=== PATIENT | male | born 1955 | race Caucasian/White ===

== ENCOUNTER 2016-10-01 08:19 | Observation (INO) | payer BC ==
[2016-10-01] MEDS ORDERED: SODIUM CHLORIDE 0.9% 1,000 ML IV STA (08:37)
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
[2016-10-01 09:25] LABS: Basophils % (A) 1 %; CH 31.5; CHCM 32.9; Eosinophils % (A) 1 %; HCT 44.8 % (39.0-53.0); HDW 2.26; HGB 14.7 gm/dL (13.0-17.5); Luc # (Auto) 0.04; Luc % (Auto) 1; Lymphocytes # (A) 0.9 k/uL (1.0-4.8); Lymphocytes % (A) 16 %; MCH 31.6 pg (25.0-35.0); MCHC 32.9 g/dL (31.0-37.0); MCV 96.1 fL (80.0-100.0); Mean Platelet Volume 7.9; Monocytes # (A) 0.3 k/uL (0-1.0); Monocytes % (A) 6 %; Neutrophils # (A) 4.2 k/uL (1.3-7.7); Neutrophils % (A) 77 %; RBC 4.66 m/uL (4.30-5.90); RDW 13.9 % (11.5-15.5); WBC 5.4 k/uL (3.8-10.6); WBC (Perox) 5.81
[2016-10-01 09:26] LABS: Glucose,Whole Blood 94 mg/dL (75-99)
--- NOTE | 2016-10-01 09:33 | CT ---
EXAMINATION TYPE: CT brain wo con DATE OF EXAM: 10/01/2016 HISTORY: Possible seizure CT DLP: 1098.3 mGycm. Automated Exposure Control for Dose Reduction was Utilized. TECHNIQUE: CT scan of the head is performed without contrast. COMPARISON: None. FINDINGS: There is no acute intracranial hemorrhage or midline shift identified. There is diffuse v entricular and sulcal prominence consistent with diffuse age-related cerebral atrophy. The globes are intact and the visualized sinuses are predominantly clear. Mild mucosal thickening anterior ethmoid sinuses is present. There is vascular calcification of distal internal carotid arteries and vertebral arteries incidentally noted bilaterally. IMPRESSION: No acute intracranial hemorrhage or midline shift. There is mild to minimal diffuse age -related cerebral atrophy .
[2016-10-01 09:36] LABS: Appearance,Urine Clear (Clear); Bilirubin,Urine Negative (Negative); Glucose,Urine (UA) Negative (Negative); Ketones,Urine Negative (Negative); Leukocyte Esterase,Urine Negative (Negative); Nitrite,Urine Negative (Negative); Particle Count 4443; Protein,Urine 1+ (Negative); Prothrombin Time 10.2 sec (9.0-12.0); RBC,Urine 5 /hpf (0-5); Specific Gravity,Urine 1.015 (1.001-1.035); Sperm,Urine Many /hpf; UA Billing (MACRO vs. MICRO) MICRO; Urobilinogen,Urine <2.0 mg/dL (<2.0); WBC,Urine 5 /hpf (0-5)
[2016-10-01 10:21] LABS: ALT 21 U/L (21-72); AST 15 U/L (17-59); Acetaminophen <10.0 ug/mL; Alcohol <10 mg/dL; Alkaline Phosphatase 47 U/L (38-126); Anion Gap 4 mmol/L; Blood Urea Nitrogen 12 mg/dL (9-20); Calcium 8.6 mg/dL (8.4-10.2); Carbon Dioxide 26 mmol/L (22-30); Chloride 106 mmol/L (98-107); Glucose 89 mg/dL (74-99); Magnesium 1.8 mg/dL (1.6-2.3); Non-African American GFR(MDRD) >60 (>60 ml/min/1.73 sqM); Potassium 4.3 mmol/L (3.5-5.1); Salicylate <1.0 mg/dL; Sodium 136 mmol/L (137-145); Total Bilirubin 0.6 mg/dL (0.2-1.3); Total Protein 5.7 g/dL (6.3-8.2)
[2016-10-01 10:41] LABS: Troponin I 0.012 ng/mL (0.000-0.034)
[2016-10-01] MEDS ORDERED: ONDANSETRON 4 MG/2 ML VIAL IVP PRN (11:56)
[2016-10-01] MEDS ORDERED: MORPHINE SULFATE 4 MG/ML SYRINGE IV PRN (11:56)
[2016-10-01] MEDS ORDERED: NALOXONE 0.4 MG/ML 1 ML VIAL IV PRN (11:56)
[2016-10-01] MEDS ORDERED: NICOTINE 21MG/24HR PATCH TRANSDERM STA (11:58)
[2016-10-01] MEDS ORDERED: SODIUM CHLORIDE 0.9% 1,000 ML IV SCH (12:00)
[2016-10-01] MEDS: ACETAMINOPHEN TAB 325 MG TAB PO PRN (14:14)
--- NOTE | 2016-10-01 15:38 | US ---
EXAMINATION TYPE: US carotid duplex BILAT DATE OF EXAM: 10/01/2016 COMPARISON: NONE CLINICAL HISTORY: Seizure this am.. EXAM MEASUREMENTS: RIGHT: Peak Systolic Velocity (PSV) cm/sec ----- Right CCA: 74.0 ----- Right ICA: 161.0 ----- Right ECA: 103.1 ICA/CCA ratio: 2.2 RIGHT: End Diastole cm/sec ----- Right CCA: 28.5 ----- Right ICA: 43.0 ----- Right ECA: 46.1 LEFT: Peak Systolic Velocity (PSV) cm/sec ----- Left CCA: 107.7 ----- Left ICA: 106.1 ----- Left ECA: 109.3 ICA/CCA ratio: 1.0 LEFT: End Diastole cm/sec ----- Left CCA: 26.8 ----- Left ICA: 49.5 ----- Left ECA: 20.4 VERTEBRALS (direction of flow): Right Vertebral: Antegrade Left Vertebral: Antegrade calcified and soft plaque seen bilaterally. Slightly elevated velocities in right ICA, distally. Vess el is tortuous at this level. IMPRESSION: 1. Moderate stenosis right internal carotid artery estimated between 50 and 69%. 2. No significant flow-limiting stenosis left internal carotid artery. Criteria for Assigning % of Stenosis / Diameter reduction (Estimation based on the indirect measurements of the internal carotid artery velocities (ICA PSV). 1. Normal (no stenosis)=ICA PSV < 125 cm/s: ratio < 2.0: ICA EDV<40 cm/s. 2. Less than 50% stenosis=ICA PSV < 125 cm/s: ratio < 2.0: ICA EDV<40 cm/s. 3. 50 to 69% stenosis=ICA PSV of 125 to 230 cm/s: ration 2.0 ? 4.0: ICA EDV 40-100 cm/s. 4. Greater than 70% stenosis to near occlusion= ICA PSV > 230 cm/s: ratio > 4.0: ICA EDV > 100 cm/s. 5. Near occlusion= ICA PSV velocities may be low or undetectable: variable ratio and ICA EDV. 6. Total occlusion=unable to detect flow.
[2016-10-01] MEDS: IBUPROFEN 400 MG TAB PO PRN (17:51)
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
[2016-10-01] MEDS ORDERED: NICOTINE POLACRILEX 2 MG GUM BUCCAL PRN (20:19)
[2016-10-01] MEDS: ENOXAPARIN 40 MG/0.4 ML SYRINGE SQ SCH (22:28)
[2016-10-01] MEDS: NICOTINE 21MG/24HR PATCH TRANSDERM SCH ×2 (22:28→22:31)
[2016-10-01] MEDS: TIOTROPIUM 18 MCG/PUFF INHALER INHALATION SCH (23:07)
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
--- NOTE | 2016-10-02 07:30 | XR ---
EXAMINATION TYPE: XR chest 2V DATE OF EXAM: 10/01/2016 HISTORY: copd. REFERENCE: Previous study dated 06/06/2011. FINDINGS: The right lung is overinflated. There are postsurgical changes in the left lung with volume loss. 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 I do not see evidence of pneumonia or edema. Heart size is normal. IMPRESSION: 1. COPD. 2. POSTSURGICAL CHANGE.
[2016-10-02] MEDS: TIOTROPIUM 18 MCG/PUFF INHALER INHALATION SCH (07:39)
[2016-10-02] MEDS: ACETAMINOPHEN TAB 325 MG TAB PO PRN ×2 (08:18→23:51)
[2016-10-02] MEDS: ENOXAPARIN 40 MG/0.4 ML SYRINGE SQ SCH (08:18)
[2016-10-02] MEDS: NICOTINE 21MG/24HR PATCH TRANSDERM SCH (08:18)
--- NOTE | 2016-10-02 08:49 | ECHOF ---
Referral Reason:seizure MEASUREMENTS -------- HEIGHT: 175.3 cm WEIGHT: 63.5 kg BP: RVIDd: 1.9 cm (< 3.3) IVSd: 1.2 cm (0.6 - 1.1) LVIDd: 3.3 cm (3.9 - 5.3) LVPWd: 1.1 cm (0.6 - 1.1) IVSs: 1.6 cm LVIDs: 2.0 cm LVPWs: 1.5 cm LAESV Index (A-L): 11.62 ml/m Ao Diam: 3.9 cm (2.0 - 3.7) AV Cusp: 1.7 cm (1.5 - 2.6) LA Diam: 3.2 cm (2.7 - 3.8) MV EXCURSION: 20.954 mm (> 18.000) MV EF SLOPE: 105 mm/s (70 - 150) EPSS: 0.8 cm MV E Tristan: 0.84 m/s MV DecT: 275 ms MV A Tristan: 0.84 m/s MV E/A Ratio: 1.00 RAP: 5.00 mmHg RVSP: 8.33 mmHg FINDINGS -------- Sinus rhythm. This was a technically adequate study. There is mild concentric left ventricular hypertrophy. Overall left ventricular systolic function is normal with, an EF between 60 - 65 %. The right ventricle is normal in size and function. Normal LA size by volume 22+/-6 ml/m2. The right atrium is normal in size. Aortic valve is trileaflet and is mildly thickened. There is no evidence of aortic regurgitation. There is no evidence of aortic stenosis. The mitral valve leaflets are mildly thickened. Mild mitral annular calcification present. There is trace to mild mitral regurgitation. Trace tricuspid regurgitation present. There is no evidence of pulmonary hypertension. The right ventricular systolic pressure, as measured by Doppler, is 8.33mmHg. The pulmonic valve was not well visualized. The aortic root size is normal. Normal inferior vena cava with normal inspiratory collapse consistent with estimated right atrial pressure of 5 mmHg. There is a small pericardial effusion is located near the right ventricle. CONCLUSIONS -------- 1. Sinus rhythm. 2. There is no evidence of pulmonary hypertension. 3. The right ventricular systolic pressure, as measured by Doppler, is 8.33mmHg. 4. The pulmonic valve was not well visualized. 5. The aortic root size is normal. 6. There is a small pericardial effusion is located near the right ventricle. 7. There is mild concentric left ventricular hypertrophy. 8. Overall left ventricular systolic function is normal with, an EF between 60 - 65 %. 9. Normal LA size by volume 22+/-6 ml/m2. 10. Aortic valve is trileaflet and is mildly thickened. 11. The mitral valve leaflets are mildly thickened. 12. Mild mitral annular calcification present. 13. There is trace to mild mitral regurgitation. 14. Trace tricuspid regurgitation present. REED WORKER: Jaden Andrade RDCS
--- NOTE | 2016-10-02 15:14 | MR ---
EXAMINATION TYPE: MR brain wo/w con DATE OF EXAM: 10/02/2016 COMPARISON: NONE HISTORY: History of lung cancer, new onset seizures, syncope, dizziness, headaches CONTRAST: Performed utilizing 13 mL intravenous MultiHance gadolinium contrast. TECHNIQUE: Multiplanar, multiecho imaging on a 3.0 Cindi magnet is performed through the brain. Stud y is performed within 24 hours of arrival to the hospital. The craniovertebral junction is normal. The pituitary is normal. Diffusion-weighted imaging is performed. No abnormal hyperintensity is present to suggest an acute i ntracranial infarct or acute ischemic change. There are a few small scattered punctate areas of hyperintensity within the periventricular white mat ter. This is most likely the basis of chronic white matter ischemic changes. No abnormal enhancement is evident. Ventricles and sulci are appropriate for the patient age. IMPRESSIONS: 1. Mild periventricular white matter T ischemic type changes. 2. Suspicious changes to suggest metastatic disease.
[2016-10-02] MEDS: IBUPROFEN 400 MG TAB PO PRN (19:41)
--- NOTE | 2016-10-02 21:34 | PN ---
DATE OF SERVICE: 10/02/2016 PRESENTING COMPLAINT: Seizure-like activity. INTERVAL HISTORY: This is a patient who was admitted after experiencing seizure activity that was witnessed, postictal state. Today patient is awake and alert, able to answer questions. No complaints. Tolerating his meals. Ambulatory in the room. Review of systems done for constitutional, cardiovascular, GI, pulmonary, with relevant findings as above. CURRENT MEDICATIONS: 1. Lovenox 40 mg subcutaneously daily. 2. Nicotine patch 21 mg daily. PHYSICAL EXAMINATION: VITAL SIGNS: Temperature 97.2, pulse 69, respiratory rate 14, blood pressure 137/90, oxygen saturation 98% on room air. GENERAL APPEARANCE: Patient is lying in bed, comfortable-appearing. No pain or discomfort noted. EYES: Pupils equal. Conjunctivae normal. NECK: JVD not raised. Mass not palpable. RESPIRATORY: Lungs clear bilaterally. CARDIOVASCULAR: First and second sounds noted. No edema. ABDOMEN: Soft, nontender. Liver and spleen not palpable. PSYCHIATRY: Alert and oriented x3. Mood and affect are normal. INVESTIGATIONS: MRI pending. EEG pending. ASSESSMENT: 1. Acute episode of confusion, witnessed tonic-clonic seizure activity with postictal state. Some headaches in the last month. Need to rule out metastatic disease from cancer. Primary generalized seizure is still in the differential. 2. Chronic obstructive pulmonary disease by clinical exam in a smoker. 3. Chronic nicotine dependence. Patient is a smoker. 4. Chronic neck pain from prior injury. PLAN: MRI of the brain and EEG are pending. Neuro checks continue. Will follow with Neurology. Patient was seen and examined by nurse practitioner, April Hightower, and all elements of the case were discussed with attending, Dr. Cornejo.
--- NOTE | 2016-10-02 22:11 | P.PN ---
Subjective This patient is a 60-year-old male who was admitted to Hospital with new onset seizures yesterday. Patient returned home from working at midnight shift and had a witnessed seizure that was noted by his . Lasted several minutes. He did to be postictal. Patient subtotally admitted to hospital yesterday. Today he underwent an MRI of the brain with and without gadolinium. He does have a history of cancer in the past. MRI of the brain reveals only mild periventricular white matter ischemic changes. There were no enhancing lesions seen. Patient also underwent routine EEG today which was reviewed and is slow but with no evidence of epileptiform discharges. We will continue close neurological follow-up for this patient. He does not appear to have any signs or symptoms of delirium tremens as he does have a history of alcohol use. We have discussed the results of the MRI and EEG today with the patient and his and son at bedside. All of their questions were answered. The patient was informed of the [place] driving law which states he cannot drive in the [facility] for appeared of 6 months following his seizure and/or syncopal episode. Patient is requesting possibility of FMLA as he apparently has to drive 38 miles to work. He is planning to retire and 40 days. He will discuss these matters with the attending physician Dr. Cornejo tomorrow. We will continue close neurological follow-up for this patient during this admission. We'll await further recommendations from social work and discharge planning. His overall prognosis at this time remains guarded. Objective - Vital Signs Vital signs: Vital Signs Temp 97.1 F L 10/02/16 15:00 Pulse 70 10/02/16 16:00 Resp 16 10/02/16 16:00 BP 135/71 10/02/16 15:00 Pulse Ox 98 10/02/16 15:00 Intake & Output 10/02/16 10/02/16 10/03/16 06:59 18:59 06:59 Intake Total 200 Balance 200 Intake: Oral 200 Other: Voiding Method Toilet # Voids 0 3 - Exam Physical examination: PHYSICAL EXAMINATION: Patient is resting comfortably in bed. VITAL SIGNS: Blood pressure is [135/71]. Heart rate is [70]. Respiration is [16] . Temperature is [97.1]. HEENT: Head is atraumatic, neck is supple, there were no carotid bruits. CHEST: Lungs are clear to auscultation and percussion. CARDIAC: S1, S2 normal rate and rhythm. There is no murmur. ABDOMEN: Soft and nontender. Bowel sounds are present. EXTREMITIES: There is no pedal edema. Peripheral pulses are present. Neurological examination: Patient's neurological examination is unchanged from yesterday. - Labs CBC & Chem 7: 10/01/16 09:00 10/01/16 09:47 Assessment and Plan (1) History of non-Hodgkin's lymphoma Status: Acute Code(s): Z85.72 - PERSONAL HISTORY OF NON-HODGKIN LYMPHOMAS (2) History of alcohol use Status: Acute Code(s): Z87.898 - PERSONAL HISTORY OF OTHER SPECIFIED CONDITIONS (3) New onset seizure Status: Acute Code(s): R56.9 - UNSPECIFIED CONVULSIONS Plan: This patient is a 60-year-old male who was admitted to hospital with possible new onset seizure. Patient was at home and had a witnessed seizure noticed by his . He was brought into the emergency room suddenly admitted to Hospital. Patient has a history of remote lung cancer. He underwent a MRI of the brain today with without gadolinium. This MRI came back negative for any evidence of enhancing mass lesions and/or tumor. There was mild periventricular white matter ischemic changes noted. He underwent a routine EEG today which is reviewed and is only mildly slow with no evidence of any epileptiform discharges. We reviewed the results of the MRI and EEG today with the patient and his . He is advised of the [place] driving law which states he cannot drive and [facility] for appeared of 6 months following his last seizure and/or syncopal episode. 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 He may need to apply for [place] leave. We have discussed this with the and his son today at bedside. All of their questions were answered. We will continue close neurological follow-up with the patient. At this time he does not require anticonvulsant medication. If he were to have a another seizure however he will be placed on long-term anticonvulsant therapy. His overall prognosis at this time remains guarded.
[2016-10-03 07:37] VITALS: BP 158/84; PULSE 59; RESP 20; TEMP 96.2
[2016-10-03] MEDS: NICOTINE 21MG/24HR PATCH TRANSDERM SCH (08:18)
[2016-10-03] MEDS: ENOXAPARIN 40 MG/0.4 ML SYRINGE SQ SCH ×2 (08:18→08:22)
[2016-10-03] MEDS: TIOTROPIUM 18 MCG/PUFF INHALER INHALATION SCH (08:22)
--- NOTE | 2016-10-03 08:57 | EEG ---
DATE OF SERVICE: 10/02/[address] Cornejo. CONSULTING INTERPRETING PHYSICIAN: Dr. Paty Landeros. INDICATIONS FOR EXAMINATION: This patient is a 60-year-old male being evaluated for new onset seizures. Patient with 10 minute episode of tonic-clonic seizure activity followed by postictal confusion. Patient has history of heavy alcohol use. AGE: 60Y EEG FINDINGS: A routine 21-channel, awake digital EEG recording was accomplished utilizing the 10 - 20 international system with bipolar and referential montages. The background activity in the most alert resting state consists of a low to medium amplitude, fairly well-developed and well sustained 7 Hz activity over the posterior head regions. This posterior rhythm attenuates to eye opening. There is a small amount of low amplitude 18 to 20 Hz beta activity seen maximally over the anterior head regions. Muscle and movement artifact was observed on a few occasions during the tracing. Hyperventilation was not performed. Photic stimulation at flash frequencies of 2 to 30 Hz produced a good symmetrical occipital driving response. No epileptiform discharges were seen. IMPRESSION: This EEG is within normal limits for the patient's age. The EEG failed to reveal any focal, lateralized or epileptiform abnormalities. Clinical correlation is recommended.
[2016-10-03 08:58] LABS: Basophils % (A) 1 %; CH 31.8; CHCM 33.1; Eosinophils % (A) 1 %; HCT 46.5 % (39.0-53.0); HDW 2.24; HGB 14.8 gm/dL (13.0-17.5); Luc # (Auto) 0.07; Luc % (Auto) 2; Lymphocytes # (A) 1.7 k/uL (1.0-4.8); Lymphocytes % (A) 37 %; MCH 30.8 pg (25.0-35.0); MCHC 31.9 g/dL (31.0-37.0); MCV 96.6 fL (80.0-100.0); Mean Platelet Volume 7.6; Monocytes # (A) 0.3 k/uL (0-1.0); Monocytes % (A) 7 %; Neutrophils # (A) 2.5 k/uL (1.3-7.7); Neutrophils % (A) 54 %; RBC 4.81 m/uL (4.30-5.90); RDW 13.7 % (11.5-15.5); WBC 4.6 k/uL (3.8-10.6); WBC (Perox) 4.54
[2016-10-03 09:15] LABS: Anion Gap 8 mmol/L; Blood Urea Nitrogen 12 mg/dL (9-20); Calcium 9.6 mg/dL (8.4-10.2); Carbon Dioxide 26 mmol/L (22-30); Chloride 105 mmol/L (98-107); Glucose 140 mg/dL (74-99); Non-African American GFR(MDRD) >60 (>60 ml/min/1.73 sqM); Potassium 4.4 mmol/L (3.5-5.1); Sodium 139 mmol/L (137-145)
--- NOTE | 2016-10-03 15:14 | PN ---
DATE OF SERVICE: 10/02/2016 ATTENDING NOTE: This patient was seen and examined by me on 10/02/16. I reviewed the note of my nurse practitioner, Ms. Hightower. Discussed. Additional findings below. Patient was admitted with seizure activity. Pending results of MRI. No further seizure activity. On examination, lungs have decreased breath sounds. CARDIOVASCULAR: First and second sounds. PSYCH: Alert and oriented x3. ASSESSMENT: Seizure activity. Rule out metastatic disease. Care was discussed with the patient and family. EEG still pending. Will follow.
--- NOTE | 2016-10-04 09:40 | DS ---
DATE OF ADMISSION: 10/01/2016 DATE OF DISCHARGE: 10/03/2016 FINAL DIAGNOSES: 1. New onset seizures tonic-clonic type. 2. Chronic obstructive pulmonary disease in a smoker. 3. Chronic nicotine dependence. Patient is a smoker. 4. Chronic neck pain from prior injury, probably cervical osteoarthritis. Consultation with Dr. Gianfranco Landeros from neurology. HOSPITAL COURSE: This patient presented with acute episode of seizure that was witnessed in a postictal state. EEG came back negative. MRI did not really rule out a metastatic disease. Carotid Doppler showed a 50 to 69% stenosis on the right side. A 2-D echocardiogram was unremarkable. Patient was seen by Gianfranco Landeros from neurology, and okay to be discharged. It may be noted that patient did have a history of lung cancer treated several years ago. I did discuss with the patient about the patient getting outpatient follow up with Dr. Shepard for further work. Patient also advised against driving at this point and also seizure precautions. Patient not to go back to work until he has followed up with Dr. Landeros from neurology. Care was discussed in detail today with the patient's and son. On examination, lungs have decreased breath sounds. PSYCH: Alert and oriented x3. DISCHARGE MEDICATIONS: 1. Millwood 5 1 tablets t.i.d. p.r.n. 2. Atrovent 2 puffs q.i.d. 3. Nicotine 20 mg patch. 4. Nicorette 2 mg q.4 p.r.n. Follow up with Dr. Shepard in one week. Follow up with Dr. Gianfranco Landeros in 10 days, Dr. Hatch in one week. Patient not to return to work until follow up with Dr. Gianfranco Landeros. No driving until further notice. Discharge planning more than 35 minutes.
== END 2016-10-03 13:00 | disposition home or self-care (01) ==
LOC: EC 08:19 → 4MS4W 11:52
PROVIDERS: ADMIT Hospitalist; ATTEND Hospitalist
DX: R56.9 Unspecified convulsions (principal); F17.200 Nicotine dependence, unspecified, uncomplicated; J44.9 Chronic obstructive pulmonary disease, unspecified; G89.29 Other chronic pain; M54.2 Cervicalgia; G43.909 Migraine, unspecified, not intractable, without status migrainosus; Z79.891 Long term (current) use of opiate analgesic; Z92.21 Personal history of antineoplastic chemotherapy; Z85.118 Personal history of other malignant neoplasm of bronchus and lung; Z82.49 Family history of ischemic heart disease and other diseases of the circulatory system; Z85.72 Personal history of non-Hodgkin lymphomas; Z87.828 Personal history of other (healed) physical injury and trauma
CPT/HCPCS: 99285; 96361 ×5; 96372; 96360; 36415; 94640 ×2; 95816; 93005; 93306; 80053; 80048; 82550; 82553; 83735; 84484; 85025 ×2; 85610; 85730; 81001; 80306; 83520 ×2; 80320; 71020; 93880; 70450; 70553; G0378 ×3; S4990; J1650; A9577

== ENCOUNTER 2019-02-03 12:07 | Day surgery (SDC) | payer BC, MEDICAID ==
[2019-02-01 14:55] VITALS: BMI 18.7
[~2019-02-03 12:07] MED LIST: LACTATED RINGERS 1,000 ML IV SCH; LIDOCAINE 1% 20 ML VIAL (10MG/ML) FOR IV START INTRADERMA PRN
[2019-02-03 12:42] VITALS: TEMP 98.6
[2019-02-03] MEDS ORDERED: LIDOCAINE 1% INJ 10MG/ML (20 ML MDV) ONE (12:56)
[2019-02-03] MEDS ORDERED: PROPOFOL 10 MG/ML 20 ML VIAL IV ONE (12:56)
--- NOTE | 2019-02-03 13:23 | P.OP ---
Date of Procedure: 02/03/19 Preoperative Diagnosis: Screening Postoperative Diagnosis: Splenic flexure colon polyp, descending colon polyp, sigmoid colon Procedure(s) Performed: Colonoscopy with hot snare polypectomy Surgeon: Patt Delvalle Pathology: other (Sigmoid colon polyp, splenic flexure polyp, descending colon polyp) Condition: stable Disposition: same day Indications for Procedure: 63-year-old male presented for screening colonoscopy. Risks, benefits and alternatives were provided to the patient. The patient did provide consent prior to attending the endoscopy suite. Operative Findings: Polyps as described in the procedure Description of Procedure: The patient was brought into the endoscopy suite and placed in left lateral decubitus position. Adequate sedation was achieved using conscious sedation. A digital rectal exam was performed and mild internal hemorrhage were palpated. An endoscope was then placed in the rectum and advanced to the cecum as identified by landmarks including the appendiceal orifice and the ileocecal valve. The prep was good. The colonoscope was then slowly withdrawn, examining for any mucosal abnormality's. The cecum, ascending, transverse, descending and sigmoid colon were visualized adequately. Multiple polyps were found throughout the colon. Polyps were noted at the splenic flexure, descending colon and sigmoid colon. All polyps were removed with hot snare polypectomy. Hemostasis was noted to be maintained. Retroflexion was performed in the rectum and mild internal hemorrhoids were visible. Excess air was removed, the colonoscope withdrawn and the procedure terminated. The patient was then transferred to the recovery unit in stable condition. Repeat colonoscopy should be performed in 5 years.
[2019-02-03 13:39] VITALS: BP 144/78; PULSE 67; RESP 18
== END 2019-02-03 13:52 | disposition home or self-care (01) ==
LOC: ORWHC2ENDO 12:07
PROVIDERS: ATTEND Surgery
DX: D12.4 Benign neoplasm of descending colon (principal); D12.3 Benign neoplasm of transverse colon; D12.5 Benign neoplasm of sigmoid colon; K64.8 Other hemorrhoids; E78.5 Hyperlipidemia, unspecified; Z86.718 Personal history of other venous thrombosis and embolism; Z85.118 Personal history of other malignant neoplasm of bronchus and lung; Z97.2 Presence of dental prosthetic device (complete) (partial); Z79.899 Other long term (current) drug therapy; F17.200 Nicotine dependence, unspecified, uncomplicated
CPT/HCPCS: 88305; 45385; J2001; J2704

== ENCOUNTER 2020-02-09 13:00 | Emergency (ER) | payer MEDICARE, OTHER ==
[2020-02-09 13:10] VITALS: TEMP 97
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
[2020-02-09 13:42] LABS: Basophils % (A) 0 %; Eosinophils # (A) 0.1 k/uL (0-0.7); Eosinophils % (A) 1 %; HCT 46.5 % (39.0-53.0); HGB 15.1 gm/dL (13.0-17.5); Lymphocytes # (A) 1.1 k/uL (1.0-4.8); Lymphocytes % (A) 14 %; MCH 31.7 pg (25.0-35.0); MCHC 32.5 g/dL (31.0-37.0); MCV 97.6 fL (80.0-100.0); Mean Platelet Volume 7.5; Monocytes # (A) 0.4 k/uL (0-1.0); Monocytes % (A) 5 %; Neutrophils # (A) 6.3 k/uL (1.3-7.7); Neutrophils % (A) 79 %; Platelet Count 236 k/uL (150-450); RBC 4.76 m/uL (4.30-5.90); RDW 13.8 % (11.5-15.5)
[2020-02-09 13:54] LABS: ALT 19 U/L (4-49); AST 28 U/L (17-59); African American GFR (CKD) >90 (>60 ml/min/1.73 sqM); Alcohol <10 mg/dL; Alkaline Phosphatase 59 U/L (38-126); Anion Gap 7 mmol/L; Blood Urea Nitrogen 13 mg/dL (9-20); Calcium 9.3 mg/dL (8.4-10.2); Carbon Dioxide 23 mmol/L (22-30); Chloride 104 mmol/L (98-107); Glucose 127 mg/dL (74-99); Non-African American GFR(CKD) >90 (>60 ml/min/1.73 sqM); Potassium 4.4 mmol/L (3.5-5.1); Sodium 134 mmol/L (137-145); Total Bilirubin 0.6 mg/dL (0.2-1.3); Total Protein 6.6 g/dL (6.3-8.2)
[2020-02-09 14:00] LABS: INR 0.9 (<1.2); Prothrombin Time 9.9 sec (9.0-12.0)
[2020-02-09 14:19] LABS: Partial Thromboplastin Time 21.5 sec (22.0-30.0)
--- NOTE | 2020-02-09 14:19 | CT ---
EXAMINATION TYPE: CT brain wo con DATE OF EXAM: 02/09/2020 HISTORY: Seizure activity CT DLP: 1201.4 mGycm. Automated Exposure Control for Dose Reduction was Utilized. TECHNIQUE: CT scan of the head is performed without contrast. COMPARISON: CT brain October 01, 2016. FINDINGS: There is no acute intracranial hemorrhage or midline shift identified. There is diffuse v entricular and sulcal prominence consistent with diffuse age-related cerebral atrophy greatest over b ilateral frontal and parietal lobes. There is low-attenuation in the periventricular white matter co nsistent with chronic small vessel ischemic change. The globes are intact and the visualized sinuses are clear. Nasal septum deviated to right of midline. IMPRESSION: No acute intracranial hemorrhage or midline shift. There is mild to moderate diffuse ag e-related cerebral atrophy and mild chronic small vessel ischemic change redemonstrated. No signific ant change from prior.
[2020-02-09 14:45] LABS: Creatine Kinase MB 0.8 ng/mL (0.0-2.4)
[2020-02-09 14:48] LABS: Troponin I 0.038 ng/mL (0.000-0.034)
[2020-02-09 15:23] VITALS: BP 144/85; PULSE 80; RESP 17
== END 2020-02-09 15:22 | disposition left against medical advice (07) ==
LOC: EC 13:00
DX: R55 Syncope and collapse (principal); R41.0 Disorientation, unspecified; E78.5 Hyperlipidemia, unspecified; Z79.899 Other long term (current) drug therapy; Z85.118 Personal history of other malignant neoplasm of bronchus and lung; Z90.2 Acquired absence of lung [part of]
CPT/HCPCS: 36415; 93005; 80053; 82550; 82553; 84484; 85025; 85610; 85730; 70450; 99285; G0480; 80320

== ENCOUNTER 2020-02-27 06:21 | Day surgery (SDC) | payer MEDICARE, OTHER ==
[~2020-02-27 06:21] MED LIST changes: +ALPRAZolam 0.25 MG TAB PO PRN; +ALPRAZolam 0.5 MG TAB PO PRN; +ASPIRIN 325 MG TAB PO STA; -LACTATED RINGERS 1,000 ML IV SCH; -LIDOCAINE 1% 20 ML VIAL (10MG/ML) FOR IV START INTRADERMA PRN; +NITROGLYCERIN SL TABS 0.4 MG TAB SUBLINGUAL PRN; +SODIUM CHLORIDE 0.9% 1,000 ML in EMPTY BAG 1 BAG IV ONE
[2020-02-27] MEDS ORDERED: SODIUM CHLORIDE 0.9% 1,000 ML IV ONE (07:03)
[2020-02-27] MEDS ORDERED: LIDOCAINE 1% INJ 10MG/ML (20 ML MDV) SQ ONE ×2 (07:38→07:44)
[2020-02-27] MEDS ORDERED: fentaNYL (PF) 50 MCG/ML 2 ML AMP IVP ONE ×2 (07:38→07:44)
[2020-02-27] MEDS ORDERED: MIDAZOLAM 2 MG/2 ML VIAL IVP ONE (07:38)
[2020-02-27] MEDS ORDERED: HEPARIN SODIUM 1,000 UN/ML (10ML VL) IV ONE ×3 (08:12→08:59)
[2020-02-27] MEDS ORDERED: CLOPIDOGREL 75 MG TAB PO ONE (08:22)
[2020-02-27] MEDS ORDERED: IOPAMIDOL-370 125ML BTL INJ ONE ×2 (08:40)
[2020-02-27] MEDS ORDERED: NITROGLYCERIN 1000MCG/10ML SYRINGE INTRACORON ONE ×2 (08:41→09:13)
[2020-02-27] MEDS ORDERED: IOPAMIDOL-370 100ML BTL INJ ONE (09:30)
[2020-02-27] MEDS ORDERED: RX INFO: IV CONTRAST WAS GIVEN 1 EACH MISC MISCELLANE PRN (09:43)
[2020-02-27] MEDS ORDERED: ATROPINE SULFATE 0.1 MG/ML 10ML SYRINGE IV PRN (09:43)
[2020-02-27] MEDS ORDERED: NITROGLYCERIN SL TABS 0.4 MG TAB SUBLINGUAL PRN (09:43)
[2020-02-27] MEDS ORDERED: ZOLPIDEM 5 MG TAB PO PRN (09:43)
[2020-02-27] MEDS ORDERED: MAG HYDROX/AL HYDROX/SIMETH 30 ML CUP PO PRN (09:43)
--- NOTE | 2020-02-27 10:35 | CC ---
CARDIAC CATHETERIZATION REPORT INDICATION: Non ST-segment elevation OH. This is a 64-year-old gentleman who had an episode of syncope with mild troponin elevation and CT scan of the chest showed extensive calcification of the coronaries. Due to this, he was advised to undergo cardiac catheterization to evaluate his coronary anatomy and streamline his management. PROCEDURE NOTE: After obtaining informed consent, left heart catheterization and coronary angiogram were performed via the left femoral artery using standard Edil catheters. Patient tolerated the procedure well without any obvious immediate complications. Patient received moderate conscious sedation. Total sedation time was 23 minutes. I initially attempted vascular on the right side; however, we could not pass the Glidewire past the common femoral artery. Due to this, I went on to obtain access on the left side uneventfully. FINDINGS: HEMODYNAMICS: Left ventricular end-diastolic pressure is 12 mm. There is no significant gradient across the aortic valve. LEFT VENTRICULOGRAM: Left ventriculogram was not performed. PULMONARY ANGIOGRAM: Under fluoroscopy, the coronaries are heavily calcified. The left main appears calcified but is free of significant stenosis. Divides into left anterior descending coronary artery and circumflex coronary artery. Both the vessels are heavily calcified. Circumflex is a nondominant vessel and is free of stenosis. LAD shows a moderate area of stenosis in the proximal part that involves the origin of the diagonal branch. At its worst it seems to be a 50% to 65% stenosis. Right coronary artery is a large dominant vessel that is heavily calcified. There is a focal 95% stenosis in the midportion. CONCLUSION: Heavily calcified coronary with 95% focal stenosis involving the large dominant RCA in its midportion and a moderate area of stenosis in the proximal LAD. PLAN: At this stage is to perform angioplasty of the right coronary artery and obtain a stress test and if he has ischemia in the LAD distribution, bring him back and attempt angioplasty of the LAD also. I am going to review the angiographic data with and will decide on further course of action. MMODL / IJN: [id number] /
--- NOTE | 2020-02-27 10:42 | LTR ---
DATE OF SERVICE: 02/27/2020 RE: Michoacano Diaz Dear Dr. Hatch; I performed cardiac catheterization on Michoacano Diaz, a detailed catheterization note is enclosed for your records. In brief, the patient's heart catheterization reveals a critical stenosis involving the LAD artery for which he will undergo angioplasty with stent placement. Sincerely, MD RENAE Reddy / TAR: [id number] /
--- NOTE | 2020-02-27 12:48 | P.PRCINT ---
Percutaneous Coronary Int. - Percutaneous Coronary Intervention Percutaneous Coronary Intervention: PROCEDURES PERFORMED: Selective right and left coronary angiography, successful PCI of mid RCA with a 2.25 x 15 mm Xience TIARA, postdilated with a 2.5 mm noncompliant balloon, PCI of proximal to mid LAD with a 2.5 x 18 mm, postdilated with a 2.75 noncompliant balloon, POBA of diagonal 1 branch with a 1.5 mm balloon. INDICATION: Mild troponin elevation, and syncope HISTORY: A she is a pleasant 64-year-old male with history of syncope with mild troponin elevation and computed tomography scan of the chest showing extensive calcifications of the coronary arteries. Due to this he was advised to undergo cardiac catheterization which was performed by Dr. Henry. I was asked to evaluate for possible PCI. PROCEDURE: After the risks, benefits and alternatives of the above mentioned procedure explained in detail with the patient, informed consent was obtained. The decision was made to intervene on the RCA and the LAD. Heparin was given for an ACT over 250. A 6Fr sheath had been placed in the right radial artery using modified Seldinger technique. A 6Fr AL 0.75 guide catheter was used to engage the RCA. A 0.014 BMW wire was advanced into the distal vessel without difficulty. The lesion was predilated with a 1.5 x 12 mm balloon with the help of a guideliner. Balloon angioplasty was performed with a 2.0 x 12 mm balloon. Next, a 2.25 x 15 mm Xience TIARA was deployed. The stent was then post dilated w ith a 2.5 x 12 mm NC balloon. Preintervention there was a 95 % stenosis and NOAH 3 flow and post intervention there was 0 % residual stenosis and NOAH 3 flow without evidence of dissection. The wire was removed and final angiograms were taken. Next, the decision was made to intervene on the LAD. A 6 Fr CLS 3.5 guide was used to engage the left main. A 0.014 BMW wire was placed on the LAD and a second 0.014 BMW wire was placed down the diagonal 1 branch. Plain old balloon angioplasty was performed of the diagonal 1 branch with preintervention 80% stenosis and NOAH 3 flow and post balloon angioplasty 30% stenosis with NOAH 3 flow. Next, a 2.5 x 12 mm noncompliant balloon was used to predilate the LAD lesion. A 2.5 x 18 mm Xience TIARA was placed in the proximal to mid LAD. The stent was postdilated with a 2.75 x 12 mm noncompliant balloon. Preintervention there was 80% proximal to mid LAD stenosis at the diagonal 1 branch bifurcation with NOAH 3 flow. Postintervention there was 0% residual stenosis with NOAH 3 flow. Left femoral angiogram had shown an adequate anatomy for closure. The sheath was sutured in place for removal on the floor. The patient tolerated the proced ure well. Patient was transported back to the post catheterization holding area in stable condition. Conscious Sedation: Patient was monitored under the direct supervision of vision of myself for conscious sedation using Versed and fentanyl for a total duration of 76 minutes HEMODYNAMICS: Aorta: 137/72 SELECTIVE CORONARY ARTERIOGRAPHY: LEFT MAIN: The left main is a large caliber vessel which bifurcates into the LAD and circumflex. There is no significant stenosis. LEFT ANTERIOR DESCENDING CORONARY ARTERY: LAD is a large caliber vessel which wraps around to the apex. There is proximal LAD 50% stenosis which narrows to a 80% stenosis at the diagonal 1 branch. Diagonal 1 has a proximal 70% stenosis. The remainder of the LAD has mild luminal irregularities. LEFT CIRCUMFLEX CORONARY ARTERY: Left circumflex is a moderate caliber vessel. There is a proximal 30-40% circumflex stenosis. RIGHT CORONARY ARTERY: The right coronary artery is a large caliber vessel which gives off a PDA and PLV branch and is the dominant vessel. There is a mid RCA 95% stenosis. FINAL IMPRESSION: 1. Coronary artery disease as described above including 80% LAD stenosis and 95% RCA stenosis. 2. Successful PCI of mid RCA with a 2.25 x 15 mm Xience TIARA, postdilated with a 2.5 mm noncompliant balloon, PCI of proximal to mid LAD with a 2.5 x 18 mm, postdilated with a 2.75 noncompliant balloon, POBA of diagonal 1 branch with a 1.5 mm balloon. PLAN: 1. Aggressive risk factor modification per most recent ACC/AHA guidelines. 2. Continue dual antiplatelets for 12 months.
[2020-02-27 13:55] VITALS: BMI 19.3
[2020-02-28 08:18] LABS: African American GFR (CKD) >90 (>60 ml/min/1.73 sqM); Non-African American GFR(CKD) >90 (>60 ml/min/1.73 sqM)
[2020-02-28 08:49] VITALS: BP 145/85; PULSE 97; RESP 16; TEMP 97.5
[2020-02-28] MEDS ORDERED: ASPIRIN 81 MG PO SCH (09:00)
[2020-02-28] MEDS ORDERED: CLOPIDOGREL 75 MG TAB PO SCH (09:00)
--- NOTE | 2020-02-28 09:52 | DS ---
DISCHARGE SUMMARY DATE OF ADMISSION: 02/27/2020. DATE OF DISCHARGE: 02/28/2020. FINAL DIAGNOSES: Multivessel coronary artery disease. PROCEDURES PERFORMED: 1. Left heart catheterization. 2. Angioplasty with stent placement in LAD and right coronary artery. Michoacano is a 64-year-old gentleman who presented to me in the outpatient setting having had a syncope and was advised to undergo cardiac catheterization. Cardiac catheterization revealed a critical stenosis involving mid RCA and significant stenosis involving proximal LAD. He underwent stents in both of them. He has heavily calcified vessels. Has had an uneventful night. EKG shows sinus rhythm with right bundle branch block. Does not have any labs from this morning. At the time of my evaluation, he appears comfortable at rest and is free of symptoms. Has mild tenderness in the left groin. Vital signs are stable. There is no jugular venous distention. Chest exam reveals fair air entry bilaterally. Heart exam reveals first and second heart sounds. No gallop. Abdomen is soft. Exam of extremities did not reveal any edema. Right groin is soft. Left groin has mild tenderness, but there is no bruit and no hematoma. DISCHARGE MEDICATIONS: Patient will be discharged home on aspirin, Plavix 75 mg daily, Lipitor and Toprol-XL and sublingual nitroglycerin. FOLLOWUP: He will be followed up in my office in a week's time. MMODL / IJN: [id number] /
== END 2020-02-28 09:48 | disposition home or self-care (01) ==
LOC: CATHCVL 06:21 → 3SCARD 09:29 → CATHCVL 02-28 09:48
PROVIDERS: ATTEND Internal Medicine Cardiovascular Disease
DX: I25.10 Atherosclerotic heart disease of native coronary artery without angina pectoris (principal); E78.2 Mixed hyperlipidemia; C34.90 Malignant neoplasm of unspecified part of unspecified bronchus or lung; F17.210 Nicotine dependence, cigarettes, uncomplicated; Z79.82 Long term (current) use of aspirin; Z79.899 Other long term (current) drug therapy; Z90.2 Acquired absence of lung [part of]; Z85.72 Personal history of non-Hodgkin lymphomas; Z82.49 Family history of ischemic heart disease and other diseases of the circulatory system
CPT/HCPCS: 93458; 92921; 82565; C9600 ×2; C1769 ×3; C1887 ×3; C1725 ×4; C1894; C1874; J2250; J2001; J3010; J1644; Q9967 ×2

== ENCOUNTER 2021-04-20 03:22 | Inpatient (IN) | payer MEDICARE, OTHER ==
[2021-04-20] MEDS ORDERED: LORazepam 2 MG/ML INJ IV STA (03:35)
[2021-04-20] MEDS ORDERED: SODIUM CHLORIDE 0.9% 1,000 ML IV STA (03:35)
--- NOTE | 2021-04-20 04:24 | CT ---
EXAMINATION TYPE: CT brain wo con DATE OF EXAM: 04/20/2021 COMPARISON: 02/09/2020 HISTORY: seizure CT DLP: 1154.40 mGycm Automated exposure control for dose reduction was used. There is mild cerebral atrophy. There is no mass effect nor midline shift. There is no sign of intrac ranial hemorrhage. Calvarium is intact. There is normal aeration of the mastoid sinuses. Skull base i s intact. IMPRESSION: Mild atrophy. No acute intracranial abnormality. No change.
[2021-04-20 06:07] LABS: Basophils % (A) 0 %; Eosinophils % (A) 0 %; HCT 43.4 % (39.0-53.0); HGB 14.5 gm/dL (13.0-17.5); Lymphocytes # (A) 1.2 k/uL (1.0-4.8); Lymphocytes % (A) 15 %; MCH 31.2 pg (25.0-35.0); MCHC 33.3 g/dL (31.0-37.0); MCV 93.5 fL (80.0-100.0); Mean Platelet Volume 7.8; Monocytes # (A) 0.3 k/uL (0-1.0); Monocytes % (A) 4 %; Neutrophils # (A) 6.2 k/uL (1.3-7.7); Neutrophils % (A) 79 %; Platelet Count 199 k/uL (150-450); RBC 4.64 m/uL (4.30-5.90); RDW 13.7 % (11.5-15.5); WBC 7.9 k/uL (3.8-10.6)
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
[2021-04-20 06:17] LABS: ALT 21 U/L (4-49); AST 30 U/L (17-59); Acetaminophen <10.0 ug/mL; African American GFR (CKD) >90 (>60 ml/min/1.73 sqM); Albumin 3.5 g/dL (3.5-5.0); Alcohol <10 mg/dL; Alkaline Phosphatase 59 U/L (38-126); Anion Gap 8 mmol/L; Blood Urea Nitrogen 15 mg/dL (9-20); Calcium 8.7 mg/dL (8.4-10.2); Carbon Dioxide 21 mmol/L (22-30); Chloride 103 mmol/L (98-107); Glucose 88 mg/dL (74-99); Non-African American GFR(CKD) >90 (>60 ml/min/1.73 sqM); Potassium 4.5 mmol/L (3.5-5.1); Salicylate <1.0 mg/dL; Sodium 132 mmol/L (137-145); Total Bilirubin 0.4 mg/dL (0.2-1.3); Total Protein 5.9 g/dL (6.3-8.2)
[2021-04-20] MEDS ORDERED: LORazepam 2 MG/ML INJ IV PRN (06:25)
[2021-04-20] MEDS ORDERED: levETIRAcetam IV 1,000 MG in SALINE 1 100ML.BAG IVPB STA (06:25)
[2021-04-20] MEDS ORDERED: NALOXONE 0.4 MG/ML 1 ML VIAL IV PRN (06:25)
[2021-04-20] MEDS ORDERED: ONDANSETRON 4 MG/2 ML VIAL IVP PRN (06:25)
[2021-04-20 06:32] LABS: Amphetamine Screen,Urine Not Detected (NotDetected); Barbiturate Screen,Urine Not Detected (NotDetected); Benzodiazepines Screen,Urine Not Detected (NotDetected); Cocaine Screen,Urine Not Detected (NotDetected); Methadone Screen, Urine Not Detected (NotDetected); Opiate Screen,Urine Not Detected (NotDetected); Oxycodone Screen, Urine Not Detected (NotDetected); Phencyclidine Screen,Urine Not Detected (NotDetected); Tricyclic Antidepressant,Urine Not Detected (NotDetected); Urn Cannabinoid Scrn Not Detected (NotDetected)
[2021-04-20 07:55] VITALS: RESP 16
[2021-04-20] MEDS: SODIUM CHLORIDE 0.9% 1,000 ML IV SCH ×2 (10:58→12:58)
[2021-04-20] MEDS ORDERED: NITROGLYCERIN SL TABS 0.4 MG TAB SUBLINGUAL PRN (12:08)
[2021-04-20] MEDS ORDERED: CLOPIDOGREL 75 MG TAB PO SCH (12:15)
[2021-04-20] MEDS ORDERED: ASPIRIN 81 MG PO SCH (12:15)
[2021-04-20] MEDS ORDERED: METOPROLOL SUCCINATE (ER) 25 MG TAB.ER.24H PO SCH (12:15)
[2021-04-20] MEDS ORDERED: ATORVASTATIN 40 MG TAB PO SCH (12:15)
[2021-04-20 15:20] VITALS: BP 115/65; PULSE 85; TEMP 97.9
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
--- NOTE | 2021-04-20 18:15 | P.DS ---
Providers Date of admission: 04/20/21 06:25 Expected date of discharge: 04/20/21 Attending physician: Tony Cornejo Consults: 04/20/21 06:26 Consult Physician Routine Consulting Provider: Fior Cline Consult Reason/Comments: David Do you want consulting provider notified?: Yes Primary care physician: Stanley Ruedamley [facility] Course: Chief Complaint: Seizure This is a pleasant 65-year-old patient, follows with Dr. Hatch. Chronic stable medical conditions include COPD, current smoker, lung cancer treated with chemotherapy 1981, hyperlipidemia, CAD with stent, left lobectomy because of cancer. Patient did have an episode of tonic-clonic seizure back in 2017 and was then seen by Dr. Sanders from neurology. Neurological workup that was negat kortney. Yesterday patient had a chronic seizure. Lasting for a few minutes. His tongue biting and incontinence. Prior to the ER. No further episode. Patient status post drink about 6-10 beers a week. He did drink a sixpack beer yesterday. Was started on Keppra. Neurology was consulted. at the bedside. Care was discussed with the patient and . Patient to follow up outpatient with Dr. Sanders the neurologist. Seizure precautions including no driving communicated. Consultation: Dr. Pedroza from neurology Past medical history to include: Lung cancer, lobectomy, CAD with stent, hyperlipidemia, Social history: . Smoking for over 50 years one pack a day. Was averaging about 14 beers a week. Used to work with a [employer] Family history: Father of heart attack age 49 Physical examination: VITAL SIGNS: 97.8, 85, 16, 118/78, 96% room air GENERAL: BMI 23.3, declining bed awake, comfortable. EYES: Pupils equal. Conjunctiva normal. HEENT: External appearance of nose and ears normal, oral cavity grossly normal. NECK: JVD not raised; masses not palpable. HEART: First and second heart sounds are normal; no edema. LUNGS: Respiratory rate normal; decreased breath sounds. ABDOMEN: Soft, nontender, liver spleen not palpable, no masses palpable. PSYCH: Alert and oriented x3; mood and affect normal. NEUROLOGICAL: Cranial nerves grossly intact; no facial asymmetry, power and sensation grossly intact. LYMPHATICS: No lymph nodes palpable in the axilla and neck INVESTIGATIONS, reviewed in the clinical context: White count 7.9 hemoglobin 14.5 platelets 199 sodium 132 potassium 4.5 creatinine 0.74 Urine drug screen negative Alcohol less than 10 Coronavirus [PCR]: Not detected EKG tracing personally reviewed by me-sinus rhythm. Right bundle branch block. Rate 81 Computed tomography scan brain: Negative. Mild atrophy Assessment and plan: -Generalized tonic clonic seizure. Patient had one more episode back in 2017. Note that patient drinks about 14 beers a week. Started on Keppra. Follow-up in neurologist Dr. Sanders outpatient. Seizure precautions including no driving -Chronic nicotine dependence, cigarette smoker Counseled -COPD in a current smoker Symptoms controlled -CAD with stent Toprol-XL 25 mg daily, Plavix 75 mg daily, aspirin 81 mg a day -Hyperlipidemia Lipitor 40 mg daily Disposition: Home Plan - Discharge Summary New Discharge Prescriptions: New levETIRAcetam [Keppra] 500 mg PO BID #60 tab Continue Metoprolol Succinate [Toprol XL] 25 mg PO DAILY Aspirin 81 mg PO DAILY Nitroglycerin Sl Tabs [Nitrostat] 0.4 mg SUBLINGUAL Q5M PRN #25 tab PRN Reason: Chest Pain Clopidogrel [Plavix] 75 mg PO DAILY #0 tablet Atorvastatin [Lipitor] 40 mg PO DAILY Discharge Medication List Aspirin 81 mg PO DAILY 02/22/20 [History] Metoprolol Succinate [Toprol XL] 25 mg PO DAILY 02/22/20 [History] Clopidogrel [Plavix] 75 mg PO DAILY #0 tablet 02/28/20 [Rx] Nitroglycerin Sl Tabs [Nitrostat] 0.4 mg SUBLINGUAL Q5M PRN #25 tab 02/28/20 [Rx] Atorvastatin [Lipitor] 40 mg PO DAILY 04/20/21 [History] levETIRAcetam [Keppra] 500 mg PO BID #60 tab 04/20/21 [Rx] Follow up Appointment(s)/Referral(s): Paty Landeros MD [REFERRING] - 1 Week Stanley Hatch MD [Primary Care Provider] - 1-2 days Patient Instructions/Handouts: Seizure/Epilepsy Discharge Instructions & Follow-Up Discharge Disposition: HOME SELF-CARE
[2021-04-20] MEDS ORDERED: levETIRAcetam 500 MG TAB PO SCH (21:00)
[2021-04-20] MEDS ORDERED: levETIRAcetam IV 1,000 MG in SALINE 1 100ML.BAG IVPB SCH (21:00)
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
== END 2021-04-20 16:29 | disposition home or self-care (01) | DRG 101 ==
LOC: EC 03:22 → 5NMEDONC 06:25
PROVIDERS: ADMIT Hospitalist; ATTEND Hospitalist
DX: G40.919 Epilepsy, unspecified, intractable, without status epilepticus (principal); E78.5 Hyperlipidemia, unspecified; F17.210 Nicotine dependence, cigarettes, uncomplicated; S01.552A Open bite of oral cavity, initial encounter; M54.2 Cervicalgia; Z20.822 Contact with and (suspected) exposure to COVID-19; I45.10 Unspecified right bundle-branch block; J44.9 Chronic obstructive pulmonary disease, unspecified; G89.29 Other chronic pain; G31.89 Other specified degenerative diseases of nervous system; I25.10 Atherosclerotic heart disease of native coronary artery without angina pectoris; R32 Unspecified urinary incontinence; X58.XXXA Exposure to other specified factors, initial encounter; Z79.02 Long term (current) use of antithrombotics/antiplatelets; Z79.82 Long term (current) use of aspirin; Z79.899 Other long term (current) drug therapy; Z85.118 Personal history of other malignant neoplasm of bronchus and lung; Z85.72 Personal history of non-Hodgkin lymphomas; Z87.820 Personal history of traumatic brain injury; Z92.21 Personal history of antineoplastic chemotherapy; Z95.5 Presence of coronary angioplasty implant and graft; Z71.6 Tobacco abuse counseling; Z87.828 Personal history of other (healed) physical injury and trauma; Z86.79 Personal history of other diseases of the circulatory system
CPT/HCPCS: 36415; 70450; 80053; 80143; 80179; 80306; 80320; 83735; 85025; 87635; 93005; 99285

== ENCOUNTER → 2021-04-23 | Outpatient (CLI) | payer MEDICARE, OTHER | LOC: NEUROMAIN 08:52 | PROVIDERS: ATTEND Psychiatry & Neurology Neurology | DX: R56.9 Unspecified convulsions (principal); F17.200 Nicotine dependence, unspecified, uncomplicated | CPT/HCPCS: 95713 ==

== ENCOUNTER 2023-03-23 09:29 | Emergency (ER) | payer MEDICARE, OTHER ==
[2023-03-23 10:03] VITALS: BP 175/96; PULSE 97; RESP 18; TEMP 97.6
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
--- NOTE | 2023-03-23 10:17 | XR ---
EXAMINATION TYPE: XR elbow complete LT DATE OF EXAM: 03/23/2023 CLINICAL HISTORY: pain TECHNIQUE: Frontal, lateral and oblique images of the left elbow are obtained. COMPARISON: None. FINDINGS: There is no acute fracture/dislocation evident of the elbow. No abnormal fat pad signs ar e seen. The overlying soft tissue appears unremarkable. IMPRESSION: There is no acute fracture or dislocation of the elbow. ICD 10 NO FRACTURE, INITIAL EVALUATION
--- NOTE | 2023-03-23 10:30 | XR ---
EXAMINATION TYPE: XR shoulder complete LT DATE OF EXAM: 03/23/2023 CLINICAL HISTORY: pain COMPARISON: NONE TECHNIQUE: Three views of the left shoulder are obtained. FINDINGS: Surgical neck fracture of the left humerus with greater tuberosity components seen. No nader tional fractures are seen within the [id number]. Remote deformities of several left-sided ribs. AC joint and glenohumeral joint spaces are well-preserved. IMPRESSION: 1. Proximal left humeral fracture as discussed.
== END 2023-03-23 10:22 | disposition home or self-care (01) ==
LOC: EC 09:29
DX: S42.202A Unspecified fracture of upper end of left humerus, initial encounter for closed fracture (principal); E78.5 Hyperlipidemia, unspecified; F17.200 Nicotine dependence, unspecified, uncomplicated; Z79.899 Other long term (current) drug therapy; Z79.82 Long term (current) use of aspirin; W10.9XXA Fall (on) (from) unspecified stairs and steps, initial encounter
CPT/HCPCS: 99284

== ENCOUNTER → 2023-03-25 | Outpatient (CLI) | payer MEDICARE, OTHER ==
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
== END | disposition home or self-care (01) ==
LOC: RADCTMAIN 08:50
PROVIDERS: ATTEND Orthopaedic Surgery
DX: S42.232A 3-part fracture of surgical neck of left humerus, initial encounter for closed fracture (principal)